=== PATIENT | female | born 1970 | race Two or more races ===

== ENCOUNTER 2020-07-05 14:00 | Inpatient (IN) | payer OTHER ==
[~2020-07-05] VITALS: Ht 160 cm; Wt 79.4 kg
[2020-07-05] MEDS ORDERED: AZITHROMYCIN 500MG/ 250ML 250 ML IV ONE (14:15)
[2020-07-05] MEDS ORDERED: methylPREDNISolone SOD SUCC 125 MG/2 ML VL IV ONE (14:15)
[2020-07-05] MEDS ORDERED: ASCORBIC ACID 500 MG TAB PO ONE (14:15)
[2020-07-05] MEDS ORDERED: ZINC SULFATE 220mg CAP or TAB PO ONE (14:15)
[2020-07-05 14:51] LABS: Basophils # (auto) 0 10 ^3/uL (0-0.2); Basophils % (auto) 0.4 % (0.0-2.0); Eosinophils # (auto) 0 10 ^3/uL (0-0.8); Eosinophils % (auto) 0.4 % (0.0-7.0); Hematocrit 42.8 % (36.0-46.0); Hemoglobin 14.7 g/dL (12.2-16.2); Lymphocytes # (auto) 1.3 10 ^3/uL (0.4-5.4); Lymphocytes % (auto) 18.7 % (10.0-50.0); Mean Corpuscular Hemoglobin 32.3 pg (28.0-32.0); Mean Corpuscular Hgb Conc. 34.4 g/dL (32.0-36.0); Mean Corpuscular Volume 93.9 fL (80.0-100.0); Monocytes # (auto) 0.5 10 ^3/uL (0-1.3); Monocytes % (auto) 7.7 % (0.0-12.0); Neutrophils # (auto) 5.2 10 ^3/uL (1.6-8.6); Neutrophils % (auto) 72.8 % (37.0-80.0); Nucleated Red Blood Cells % 0.1 %; Platelet Count (auto) 462 10^3/uL (140-450); Red Blood Cells 4.56 10^6/uL (4.0-5.20); Red Cell Distribution Width 12.7 % (11.8-14.3); White Blood Cell 7.1 10^3/uL (4.4-10.8)
[2020-07-05 15:01] LABS: Albumin 3.2 g/dL (3.4-5.0); Calcium 8.9 mg/dL (8.5-10.1); Potassium 3.2 mmol/L (3.5-5.1)
[2020-07-05 15:04] LABS: Lactic Acid w/Reflex 2.2 mmol/L (0.4-2.0)
[2020-07-05 15:09] LABS: BUN/Creatinine Ratio 16.9; Bilirubin, Total 0.4 mg/dL (0.2-1.0); CRP High Sensitivity 0.95 mg/dL (< 0.3); Total Protein 7.1 g/dL (6.4-8.2)
[2020-07-05] MEDS ORDERED: NITROGLYCERIN 0.4 MG SL TAB SL PRN (15:15)
[2020-07-05] MEDS ORDERED: MORPHINE SULF INJ 2 MG/ML SYRINGE 1ML IV PRN (15:15)
[2020-07-05] MEDS ORDERED: SODIUM CHLORIDE 0.9% 1,000 ML IV SCH (15:30)
[2020-07-05] MEDS ORDERED: ACETAMINOPHEN 500 MG TAB PO PRN (15:30)
[2020-07-05] MEDS ORDERED: LACTULOSE 20Gm/30ML SOLN PO PRN (15:30)
[2020-07-05] MEDS ORDERED: POTASSIUM EFFERVESENT TAB 25 MEQ PO ONE (15:30)
[2020-07-05 16:23] LABS: Urine WBC None Seen /hpf (0 - 5)
[2020-07-05 16:40] LABS: Urine Bacteria FEW /hpf (None Seen); Urine Blood 3+ /uL (Negative); Urine Specific Gravity 1.008 (1.001-1.035)
[2020-07-05] MEDS: MORPHINE SULF INJ 2 MG/ML SYRINGE 1ML IV PRN ×2 (16:44→22:11)
[2020-07-05] MEDS: PROMETHAZINE HCL 25 MG/ML 1ML IV PRN (16:45)
[2020-07-05 17:45] VITALS: BP 142/102
--- NOTE | 2020-07-05 17:45 | NUR ---
Telemetry admit from ER LYNNE HAWKINS admitted to Telemetry unit after SBAR received. Patient oriented to Rosa Rodriguez, primary RN, unit, room, bed, and unit policies regarding patient care and visiting hours. Patient now on continuous telemetry monitoring, tele box # 4 and telemetry reading on arrival to unit is . Patient placed on bedside oxygen, weighed by bedscale and encouraged to call if they need something. All questions and concerns addressed, patient verbalized understanding. Note:
--- NOTE | 2020-07-05 18:00 | NUR ---
PT IS ALERT ORIENTED X4, ARRIVED VIA WHEELCHAIR, IN ROOM AIR, NO DISTRESS NOTED, ABLE TO AMBULATE AND VERBALIS HER NEEDS, OCCASIONAL DRY COUGH NOTED, BACK PAIN /, ROOM ORIENTAION GIVEN TO PT, CALL LIGHT WITHIN REACH
[2020-07-05 18:04] VITALS: BP 142/102
--- NOTE | 2020-07-05 18:29 | NUR ---
PT VAPE, DOES NOT SMOKE Addendum: 07/05/20 at 1830 by Rosa Rodriguez RN Amended: Links added.
--- NOTE | 2020-07-05 19:20 | NUR ---
OPENING SHIFT NOTE: Assumed care of patient. Patient A&O x 4, no s/s of SOB or distress, patient states she has chronic back pain 06/07 and requests pain medication, will medicate for pain PRN. Bed in lowest locked position with two side rails raised and call velazquez within reach. Instructed on POC and encouraged to call for assistance, all questions and concerns addressed, patient verbalizes understanding. Will continue to monitor Q1 hr and PRN.
[2020-07-05 20:00] VITALS: BP 155/97
--- NOTE | 2020-07-05 21:57 | NUR ---
Respiratory note: MDI NOT ADMINISTERED AT THIS TIME, PENDING COVID RESULTS. PT IN NO RESPIRATORY DISTRESS
[2020-07-05 22:00] VITALS: BP 155/79
[2020-07-05] MEDS ORDERED: BUDESONIDE (INHALATION) 180 MCG IH IN SCH (22:00)
[2020-07-05] MEDS ORDERED: ALBUTEROL SULF HFA 90MCG INH 200DOSE IN SCH (22:00)
[2020-07-05] MEDS: FAMOTIDINE 20 MG TAB PO SCH (22:10)
[2020-07-05] MEDS: ENOXAPARIN SOD 80 MG/0.8ML SYRINGE SC SCH (22:10)
[2020-07-05] MEDS: CLINDAMYCIN 600MG IV 50 ML IV SCH (22:10)
[2020-07-06] MEDS ORDERED: ALBUTEROL SULF 2.5 MG/0.5ML(0.5%) NEB SOLN NEB PRN (03:30)
[2020-07-06 04:05] VITALS: BP 158/98
[2020-07-06] MEDS: CLINDAMYCIN 600MG IV 50 ML IV SCH (06:01)
[2020-07-06] MEDS: MORPHINE SULF INJ 2 MG/ML SYRINGE 1ML IV PRN ×3 (06:02→20:29)
[2020-07-06 06:28] LABS: Basophils # (auto) 0 10 ^3/uL (0-0.2); Eosinophils # (auto) 0 10 ^3/uL (0-0.8); Hematocrit 41.8 % (36.0-46.0); Lymphocytes # (auto) 0.8 10 ^3/uL (0.4-5.4); Lymphocytes % (auto) 16.3 % (10.0-50.0); Mean Corpuscular Hemoglobin 31.7 pg (28.0-32.0); Mean Corpuscular Hgb Conc. 33.4 g/dL (32.0-36.0); Mean Corpuscular Volume 94.8 fL (80.0-100.0); Monocytes # (auto) 0.1 10 ^3/uL (0-1.3); Monocytes % (auto) 1.3 % (0.0-12.0); Neutrophils # (auto) 4.2 10 ^3/uL (1.6-8.6); Neutrophils % (auto) 82.4 % (37.0-80.0); Platelet Count (auto) 367 10^3/uL (140-450); Red Blood Cells 4.41 10^6/uL (4.0-5.20); Red Cell Distribution Width 12.6 % (11.8-14.3); White Blood Cell 5.1 10^3/uL (4.4-10.8)
[2020-07-06 06:41] LABS: Potassium 4.2 mmol/L (3.5-5.1)
--- NOTE | 2020-07-06 06:46 | NUR ---
Patient requesting Pen Ruler Operator consult stating that she has no home and is currently living out of her vehicle and would like to speak to someone for assistance.
[2020-07-06 06:50] LABS: Albumin 2.9 g/dL (3.4-5.0); BUN/Creatinine Ratio 25.9; Bilirubin, Total 0.4 mg/dL (0.2-1.0); Calcium 9.1 mg/dL (8.5-10.1); Total Protein 6.7 g/dL (6.4-8.2)
--- NOTE | 2020-07-06 08:00 | NUR ---
ASSESSMENT NOTE PT IS ALERT ORIENTED X4. RESTING IN BED COMFORTABLY, IN ROOM AIR, NO DISRESS NOTED, ABLE TO SELF REPOSITION AND VERBALIS HER DEMANDS, CONTINUE ON PAIN MANAGEMENT FOR BACK PAIN NEEDED, CALL LIGHT WITHIN REACH
[2020-07-06 09:00] VITALS: BP 157/99
--- NOTE | 2020-07-06 09:15 | NUR ---
CHARGE NURSE CAILIN CALLED, PT IS GOING TO ROOM 290 A WITH JESUS LEGER PT MADE AWARE IV ANTIBIOTICS CONTINUE INFUSING, HIGH BLOOD PRESSURE, [facility] L[facility]
[2020-07-06] MEDS: ZINC SULFATE 220mg CAP or TAB PO SCH (09:28)
[2020-07-06] MEDS: DexAMETHasone SOD PHOS 10MG/1ML VIAL INJ IV SCH (09:28)
[2020-07-06] MEDS: FAMOTIDINE 20 MG TAB PO SCH ×2 (09:28→22:07)
[2020-07-06] MEDS: ENOXAPARIN SOD 80 MG/0.8ML SYRINGE SC SCH ×2 (09:29→22:07)
[2020-07-06] MEDS ORDERED: ASCORBIC ACID 1,000 MG TAB PO SCH (10:00)
[2020-07-06] MEDS ORDERED: levoFLOXacin 500MG 100 ML IV SCH (10:00)
[2020-07-06] MEDS ORDERED: CHOLECALCIFEROL (VITD3) 2,000 UNIT CAP PO SCH (10:00)
--- NOTE | 2020-07-06 10:30 | NUR ---
REPORT GIVEN TO JESUS LEGER, PT IS GOING TO ROOM 290 A
--- NOTE | 2020-07-06 10:39 | NUR ---
TRANSFER PT TO ROOM 290 A, NO DISTRESS NOTED
--- NOTE | 2020-07-06 10:40 | NUR ---
Patient on Unit Patient on unit at this time. Report received from ARSEN Lee.
[2020-07-06] MEDS ORDERED: FUROSEMIDE 40 MG/4 ML VIAL IV ONE ×2 (11:30→18:00)
--- NOTE | 2020-07-06 11:40 | NUR ---
Covid Test Covid test done at this time. marleny Vazquez, to deliver swab to lab. Awaiting test results.
--- NOTE | 2020-07-06 11:55 | NUR ---
Call to East Call to East at this time. ARSEN Lee, aware that patient will be returning to unit.
--- NOTE | 2020-07-06 12:02 | NUR ---
CT Chest Patient getting CT of chest. After CT, patient is to return to room 235.
--- NOTE | 2020-07-06 12:10 | NUR ---
PT IS BACK TO COVID WING, NO DISTRESS NOTED, TO ROOM 235
[2020-07-06] MEDS ORDERED: cloNIDine HCL 0.1 MG TAB PO PRN (12:45)
[2020-07-06 13:00] VITALS: BP 128/66
--- NOTE | 2020-07-06 14:00 | NUR ---
PT CONTINUE STABLE, CONTINUE MONITORING
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
[2020-07-06 17:00] VITALS: BP 116/69
--- NOTE | 2020-07-06 18:27 | NUR ---
PT CONTINUE STABLE, CONTINUE MONITORING
--- NOTE | 2020-07-06 19:40 | NUR ---
OPENING SHIFT NOTE: Assumed care of patient. Patient AWAKE, ALERT, AND ORIENTED x 4, no s/s of respiratory distress. patient states back pain 9/10 and requests pain medication; will be medicated per Dr's order. Bed in lowest locked position, two side rails raised, and call velazquez within reach. Instructed on POC and encouraged to call for assistance as needed. All questions and concerns addressed. Patient verbalized understanding. Will continue to monitor Q1H/ PRN.
[2020-07-06 20:00] VITALS: BP 130/100
[2020-07-06 22:00] VITALS: BP 130/100
[2020-07-06] MEDS: TEMAZEPAM 15 MG CAP PO PRN (22:07)
--- NOTE | 2020-07-07 04:41 | NUR ---
transfer Pt is going to be transferred to room 206. Report given to ARSEN Zimmer.
--- NOTE | 2020-07-07 04:55 | NUR ---
transferred Pt transferred to r.206. Patient is stable. No s/s of respiratory distress. Vitals T 98.1 F, HR 79 bpm, RR 18 bpm, BP 142/92 mmHg, SpO2 94% on RA. All belongings transferred with the pt.
--- NOTE | 2020-07-07 04:55 | NUR ---
Transfer from [facility] Assumed care of patient that was transferred from [facility] to room 206 pt placed on telemetry 26 heart rate is SR in 60s. Pt awake and alert A/O x 4. No S/S of distress/SOB did complain of pain when coughing. Bed lowered and locked call light and beside table is within reach. Instructed on POC and to call for assist PRN, will continue to monitor for changes Q1hr and PRN.
[2020-07-07 05:00] VITALS: BP 152/98
[2020-07-07] MEDS: MORPHINE SULF INJ 2 MG/ML SYRINGE 1ML IV PRN ×4 (05:23→23:05)
[2020-07-07] MEDS: PROMETHAZINE HCL 25 MG/ML 1ML IV PRN (05:23)
[2020-07-07] MEDS: guaiFENesin-DM 100/10mg/5ml SYR PO PRN ×2 (05:24→19:45)
--- NOTE | 2020-07-07 07:50 | NUR ---
OPENING SHIFT NOTE: PATIENT RESTING IN BED, ASLEEP, EASILY AWOKEN. UPDATED CARE BOARD ON PLAN OF CARE. RESPIRATIONS EVEN AND UNLABORED, CALL LIGHT WITHIN REACH. WILL CONTINUE TO MONITOR.
[2020-07-07 08:00] VITALS: BP 110/60
--- NOTE | 2020-07-07 09:40 | NUR ---
MD ALBERT ROUNDING.
[2020-07-07] MEDS ORDERED: LIDOCAINE VISCOUS 2% 15ML UD MT PRN ×3 (09:45→11:00)
[2020-07-07] MEDS: DexAMETHasone SOD PHOS 10MG/1ML VIAL INJ IV SCH (09:49)
[2020-07-07 09:50] VITALS: BP 110/60
[2020-07-07] MEDS: ZINC SULFATE 220mg CAP or TAB PO SCH (09:50)
[2020-07-07] MEDS: FAMOTIDINE 20 MG TAB PO SCH ×2 (09:50→21:23)
[2020-07-07] MEDS: CHOLECALCIFEROL (VITD3) 1,000UNIT=25mCg TAB PO SCH (09:50)
[2020-07-07] MEDS: ASCORBIC ACID 500 MG TAB PO SCH (09:50)
[2020-07-07] MEDS: levoFLOXacin 750MG 150 ML IV SCH (09:52)
[2020-07-07] MEDS: FUROSEMIDE 40 MG/4 ML VIAL IV SCH (09:53)
--- NOTE | 2020-07-07 10:04 | NUR ---
COVID MEDS GIVEN: PER PROTOCOL DC COVID MEDS IF NEGATIVE, PATIENT NEGATIVE, MD ALBERT REQUEST TO CONTINUE AND NOT DC.
--- NOTE | 2020-07-07 10:04 | NUR ---
MD AVEL MOJICA.
--- NOTE | 2020-07-07 10:18 | NUR ---
RAPID STREP SENT TO LAB.
--- NOTE | 2020-07-07 10:31 | NUR ---
URINE SENT TO LAB.
[2020-07-07 11:25] LABS: Amphetamine Screen, Urine NEGATIVE (NEGATIVE); Barbiturate Scree,Urine NEGATIVE (NEGATIVE); Benzodiazephine Screen, Urine NEGATIVE (NEGATIVE); Cannabinoid Screen, Urine NEGATIVE (NEGATIVE); Cocaine Screen, Urine NEGATIVE (NEGATIVE); Phencyclidine Screen, Urine NEGATIVE (NEGATIVE)
[2020-07-07 11:34] LABS: Opiate Scree,Urine POSITIVE (NEGATIVE)
[2020-07-07 12:00] VITALS: BP 113/87
[2020-07-07] MEDS: ENOXAPARIN SOD 40 MG/0.4 ML SYRINGE SC SCH (12:21)
[2020-07-07] MEDS: IPRATROPIUM BROM 0.5 MG/2.5ML INH SOL NEB SCH ×2 (12:33→18:06)
[2020-07-07] MEDS: ALBUTEROL SULF 2.5 MG/0.5ML(0.5%) NEB SOLN NEB SCH ×2 (12:33→18:06)
[2020-07-07] MEDS: ACETYLCYSTEINE 10 %(100MG/ML) SOL 4ML NEB SCH ×2 (12:33→18:07)
[2020-07-07 17:00] VITALS: BP 118/83
[2020-07-07] MEDS: BUDESONIDE (INHALATION) 0.5 MG/2 ML NEB NEB SCH (18:06)
--- NOTE | 2020-07-07 18:45 | NUR ---
CARE ENDORSED TO NOC RN.
--- NOTE | 2020-07-07 19:30 | NUR ---
Opening Shift Note Assumed care of patient, awake and alert A/O x 4. Tele monitor matches Pt and leads are in position. No S/S of distress/SOB or pain. Bed locked and lowered call light and bedside table at bedside and within reach. Instructed on POC and to call for assist PRN, will continue to monitor for changes Q1hr and PRN.
[2020-07-07] MEDS: TEMAZEPAM 15 MG CAP PO PRN (21:29)
[2020-07-07] MEDS: traMADol HCL 50 MG TAB PO PRN (21:30)
[2020-07-07 21:53] VITALS: BP 110/79
[2020-07-08] MEDS: IPRATROPIUM BROM 0.5 MG/2.5ML INH SOL NEB SCH ×5 (00:09→23:48)
[2020-07-08] MEDS: ALBUTEROL SULF 2.5 MG/0.5ML(0.5%) NEB SOLN NEB SCH ×5 (00:09→23:48)
[2020-07-08 05:00] VITALS: BP 123/78
[2020-07-08] MEDS: MORPHINE SULF INJ 2 MG/ML SYRINGE 1ML IV PRN (06:21)
[2020-07-08] MEDS: ACETYLCYSTEINE 10 %(100MG/ML) SOL 4ML NEB SCH ×5 (06:55→23:48)
[2020-07-08] MEDS: BUDESONIDE (INHALATION) 0.5 MG/2 ML NEB NEB SCH ×2 (06:55→18:55)
--- NOTE | 2020-07-08 06:55 | NUR ---
Respiratory note: MUCOMYST HELD AT THIS TIME. PT DID NOT WANT IT BECAUSE SHE STATED THAT IT MAKES HER LUNGS HURT.
--- NOTE | 2020-07-08 07:00 | NUR ---
OPENING SHIFT NOTE RECEIVED REPORT ON THE PATIENT. SLEEPING IN BED. PATIENT DOES NOT SHOW ANY SIGNS OF DISTRESS AT THIS TIME. DISCUSSED THE PLAN OF CARE WITH THE PATIENT. BED IN LOWEST POSITION, SIDE RAILS UP X2, AND THE CALL LIGHT IS WITHIN REACH.
[2020-07-08 08:00] VITALS: BP 110/74
[2020-07-08] MEDS: FUROSEMIDE 40 MG/4 ML VIAL IV SCH (10:00)
[2020-07-08] MEDS: ZINC SULFATE 220mg CAP or TAB PO SCH (10:20)
[2020-07-08] MEDS: FAMOTIDINE 20 MG TAB PO SCH ×2 (10:21→20:08)
[2020-07-08] MEDS: ASCORBIC ACID 500 MG TAB PO SCH (10:21)
[2020-07-08] MEDS: CHOLECALCIFEROL (VITD3) 1,000UNIT=25mCg TAB PO SCH (10:21)
[2020-07-08] MEDS: levoFLOXacin 750MG 150 ML IV SCH (10:21)
[2020-07-08] MEDS: DexAMETHasone SOD PHOS 10MG/1ML VIAL INJ IV SCH (10:21)
[2020-07-08] MEDS: THIAMINE HCL 100 MG TAB PO SCH (10:21)
[2020-07-08] MEDS: ENOXAPARIN SOD 40 MG/0.4 ML SYRINGE SC SCH (10:22)
[2020-07-08 12:00] VITALS: BP 123/86
[2020-07-08] MEDS ORDERED: LORazepam 2MG/ML-1ML VIAL IV ONE (12:00)
--- NOTE | 2020-07-08 14:07 | NUR ---
IV insertion IV access obtained, via clean sterile technique by inserting 22 gauge catheter at the right wrist after 1 attempt(s). IV secured properly. No trauma to site. Patient tolerated well. NOTE: []
[2020-07-08] MEDS: guaiFENesin-DM 100/10mg/5ml SYR PO PRN (15:39)
--- NOTE | 2020-07-08 16:01 | NUR ---
PATIENT WANTED THE IV REMOVED BECAUSE IT WAS PAINFUL. IV TAKEN OUT AND PATIENT SHOWS NO SIGNS OF DISTRESS.
[2020-07-08] MEDS: traMADol HCL 50 MG TAB PO PRN (16:16)
[2020-07-08 16:47] VITALS: BP 110/84
--- NOTE | 2020-07-08 17:58 | NUR ---
IV insertion IV access obtained, via clean sterile technique by inserting 22 gauge catheter at the left wrist after 1 attempt(s). IV secured properly. No trauma to site. Patient tolerated well. NOTE: []
--- NOTE | 2020-07-08 17:58 | NUR ---
IV removal IV DC'd with clean sterile technique, catheter fully intact. Pressure dressing applied to site. Patient tolerated well.
[2020-07-08] MEDS: TEMAZEPAM 15 MG CAP PO PRN (20:08)
--- NOTE | 2020-07-08 20:08 | NUR ---
open note assumed care of pt, upon entering room pt awake and alert. pt on room air and denies any respiratory distress. pt oriented to this nurse and updated on plan of care. pt bed locked, low and 2x rails up. call light in reach, this nurse to round q1hr and prn. pt encouraged to call as needed.
[2020-07-08 22:00] VITALS: BP 122/81
[2020-07-09 05:00] VITALS: BP 132/67
[2020-07-09] MEDS: BUDESONIDE (INHALATION) 0.5 MG/2 ML NEB NEB SCH ×2 (06:13→19:10)
[2020-07-09] MEDS: ACETYLCYSTEINE 10 %(100MG/ML) SOL 4ML NEB SCH ×3 (06:13→19:10)
[2020-07-09] MEDS: IPRATROPIUM BROM 0.5 MG/2.5ML INH SOL NEB SCH ×3 (06:13→19:10)
[2020-07-09] MEDS: ALBUTEROL SULF 2.5 MG/0.5ML(0.5%) NEB SOLN NEB SCH ×3 (06:13→19:10)
[2020-07-09 08:00] VITALS: BP 125/85
[2020-07-09] MEDS: FAMOTIDINE 20 MG TAB PO SCH ×2 (09:06→21:24)
[2020-07-09] MEDS: CHOLECALCIFEROL (VITD3) 1,000UNIT=25mCg TAB PO SCH (09:06)
[2020-07-09] MEDS: traMADol HCL 50 MG TAB PO PRN (09:06)
[2020-07-09] MEDS: ASCORBIC ACID 500 MG TAB PO SCH (09:07)
[2020-07-09] MEDS: THIAMINE HCL 100 MG TAB PO SCH (09:07)
[2020-07-09] MEDS: ZINC SULFATE 220mg CAP or TAB PO SCH (09:07)
[2020-07-09] MEDS: ENOXAPARIN SOD 40 MG/0.4 ML SYRINGE SC SCH (09:08)
[2020-07-09] MEDS: DexAMETHasone SOD PHOS 10MG/1ML VIAL INJ IV SCH (09:08)
[2020-07-09] MEDS: levoFLOXacin 750MG 150 ML IV SCH (09:08)
[2020-07-09] MEDS: FUROSEMIDE 40 MG/4 ML VIAL IV SCH (09:08)
[2020-07-09] MEDS ORDERED: ONDANSETRON HCL 4 MG/2 ML VIAL IV PRN (10:30)
[2020-07-09] MEDS ORDERED: ONDANSETRON HCL 4 MG/2 ML VIAL IV ONE (10:30)
[2020-07-09] MEDS ORDERED: PANTOPRAZOLE 40 MG/10 ML VIAL INJ IV ONE (10:30)
[2020-07-09] MEDS: PROMETHAZINE HCL 25 MG/ML 1ML IV PRN (10:36)
--- NOTE | 2020-07-09 10:38 | NUR ---
Nutrition Assessment Notes Please refer to link for full assessment notes. Est Energy needs: 1364-6344 kcals (20-23 kcal/kgBW) Est Protein needs: 61-77 gms/day (0.8-1.0 gm/kgBW) Will continue to monitor and reassess prn. Addendum: 07/09/20 at [address] Amended: Links added.
[2020-07-09] MEDS: LORazepam 0.5 MG TAB PO PRN (10:42)
[2020-07-09 11:04] LABS: Basophils # (auto) 0 10 ^3/uL (0-0.2); Basophils % (auto) 0.2 % (0.0-2.0); Eosinophils # (auto) 0 10 ^3/uL (0-0.8); Eosinophils % (auto) 0.1 % (0.0-7.0); Hematocrit 47.1 % (36.0-46.0); Lymphocytes % (auto) 10.1 % (10.0-50.0); Mean Corpuscular Hemoglobin 32.1 pg (28.0-32.0); Mean Corpuscular Hgb Conc. 33.9 g/dL (32.0-36.0); Mean Corpuscular Volume 94.7 fL (80.0-100.0); Monocytes # (auto) 0.5 10 ^3/uL (0-1.3); Neutrophils # (auto) 8.7 10 ^3/uL (1.6-8.6); Neutrophils % (auto) 84.6 % (37.0-80.0); Platelet Count (auto) 361 10^3/uL (140-450); Red Blood Cells 4.97 10^6/uL (4.0-5.20); Red Cell Distribution Width 12.8 % (11.8-14.3); White Blood Cell 10.3 10^3/uL (4.4-10.8)
[2020-07-09 11:20] LABS: Albumin 3.5 g/dL (3.4-5.0); Amylase 116 U/L (25-115); Anion Gap 8 (5-15); Blood Urea Nitrogen 15 mg/dL (7-18); Calcium 9.7 mg/dL (8.5-10.1); Carbon Dioxide 28 mmol/L (21-32); Chloride 98 mmol/L (98-107); Glucose 93 mg/dL (74-106); Lipase 382 U/L (73-393); Sodium 134 mmol/L (136-145)
[2020-07-09 11:27] LABS: Alanine Aminotransferase 62 U/L (13-56); Alkaline Phosphatase 106 U/L (45-117); Aspartate Aminotransferase 74 U/L (15-37); Bilirubin, Total 0.4 mg/dL (0.2-1.0); GFR African American 87 mL/min; GFR Non-African American 72 mL/min; Lactate Dehydrogenase 299 U/L (84-246); Total Protein 7.7 g/dL (6.4-8.2)
[2020-07-09 12:00] VITALS: BP 118/82
[2020-07-09] MEDS: guaiFENesin-DM 100/10mg/5ml SYR PO PRN (12:51)
[2020-07-09] MEDS: SUCRALFATE 1 GM/10 ML ORAL SUSP PO SCH ×3 (12:55→21:24)
[2020-07-09 16:48] VITALS: BP 114/74
--- NOTE | 2020-07-09 19:30 | NUR ---
Opening Shift Note Assumed care of patient, awake and alert. No S/S of distress/SOB. Pain 8/10 to lower back.will medicate for pain. Instructed on POC and to call for assist PRN, will continue to monitor for changes Q1hr and PRN. bed in low position and call light within reach.
[2020-07-09] MEDS: MORPHINE SULF INJ 2 MG/ML SYRINGE 1ML IV PRN (19:35)
--- NOTE | 2020-07-09 19:35 | NUR ---
pain pain 8/10 to lower back aching.patient medicated for pain. skin color is pink. no redness or inflammation noted. patient requested morphine and denies allergic reaction to morphine.
[2020-07-09 20:00] VITALS: BP 131/78
--- NOTE | 2020-07-09 20:05 | NUR ---
pain pain4/10 tolerable level
[2020-07-09] MEDS: PANTOPRAZOLE 40 MG/10 ML VIAL INJ IV SCH (21:25)
[2020-07-09] MEDS: TEMAZEPAM 15 MG CAP PO PRN (21:26)
[2020-07-09 21:54] VITALS: BP 117/81
[2020-07-10] MEDS: IPRATROPIUM BROM 0.5 MG/2.5ML INH SOL NEB SCH ×4 (00:52→18:59)
[2020-07-10] MEDS: ALBUTEROL SULF 2.5 MG/0.5ML(0.5%) NEB SOLN NEB SCH ×4 (00:52→18:59)
[2020-07-10] MEDS: ACETYLCYSTEINE 10 %(100MG/ML) SOL 4ML NEB SCH ×4 (00:53→18:59)
[2020-07-10 05:00] VITALS: BP 126/76
[2020-07-10] MEDS: BUDESONIDE (INHALATION) 0.5 MG/2 ML NEB NEB SCH ×2 (05:53→18:59)
[2020-07-10] MEDS: SUCRALFATE 1 GM/10 ML ORAL SUSP PO SCH ×4 (06:28→21:28)
--- NOTE | 2020-07-10 07:05 | NUR ---
REPORT GIVEN TO DAYSHIFT RN PATIENT DENIES SOB DISTRESS OR PAIN.
--- NOTE | 2020-07-10 07:15 | NUR ---
OPENING SHIFT NOTE ASSUMED CARE OF PATIENT ALERT AWAKE AND IN BED. PATIENT DOES NOT SHOW ANY SIGNS OF DISTRESS AT THIS TIME. DISCUSSED THE PLAN OF CARE WITH THE PATIENT. BED IN LOWEST POSITION, SIDE RAILS UP X2, AND THE CALL LIGHT IS WITHIN REACH. WILL CONTINUE TO MONITOR.
[2020-07-10 08:11] VITALS: BP 116/58
[2020-07-10] MEDS ORDERED: PANTOPRAZOLE 40 MG/10 ML VIAL INJ IV SCH (10:00)
[2020-07-10] MEDS: DexAMETHasone SOD PHOS 10MG/1ML VIAL INJ IV SCH (10:11)
[2020-07-10] MEDS: levoFLOXacin 750MG 150 ML IV SCH (10:12)
[2020-07-10] MEDS: FUROSEMIDE 40 MG/4 ML VIAL IV SCH (10:12)
[2020-07-10] MEDS: PANTOPRAZOLE 40 MG/10 ML VIAL INJ IV SCH ×2 (10:12→21:28)
[2020-07-10] MEDS: FAMOTIDINE 20 MG TAB PO SCH ×2 (10:13→21:28)
[2020-07-10] MEDS: ENOXAPARIN SOD 40 MG/0.4 ML SYRINGE SC SCH (10:13)
[2020-07-10] MEDS: THIAMINE HCL 100 MG TAB PO SCH (10:13)
--- NOTE | 2020-07-10 10:30 | NUR ---
MD ROUNDS DR SHORT AT BEDSIDE. NO NEW ORDERS AT THIS TIME. CONTINUE CARE.
[2020-07-10 12:45] VITALS: BP 111/80
[2020-07-10] MEDS: MORPHINE SULF INJ 2 MG/ML SYRINGE 1ML IV PRN ×2 (13:45→20:18)
[2020-07-10 14:24] VITALS: BP 111/80
[2020-07-10] MEDS: metroNIDAZOLE 500MG/100ML 100 ML IV SCH ×2 (14:48→21:29)
--- NOTE | 2020-07-10 15:00 | NUR ---
IV removal IV DC'd at left hand due to infiltration with clean sterile technique, catheter fully intact. Pressure dressing applied to site. Patient tolerated well.
[2020-07-10] MEDS: LORazepam 0.5 MG TAB PO PRN (15:59)
[2020-07-10 16:40] VITALS: BP 134/86
--- NOTE | 2020-07-10 19:14 | NUR ---
CLOSING NOTE ENDORSED CARE TO NOC SHIFT RN
--- NOTE | 2020-07-10 19:22 | NUR ---
Opening Shift Note Assumed care of patient, awake and alert. No S/S of distress/SOB or pain. Instructed on POC and to call for assist PRN, will continue to monitor for changes Q1hr and PRN. no IV present. will start a new iv
--- NOTE | 2020-07-10 19:50 | NUR ---
IV insertion IV access obtained by ARSEN varma, via clean sterile technique by inserting 22 gauge catheter at right forearm 22g after 1attempt. IV secured properly. No trauma to site. Patient tolerated well.
[2020-07-10] MEDS: TEMAZEPAM 15 MG CAP PO PRN (21:28)
[2020-07-10 22:00] VITALS: BP 130/90
--- NOTE | 2020-07-10 22:42 | NUR ---
IS at bedside patient verbalized understanding on how to perform IS.
[2020-07-11] MEDS: IPRATROPIUM BROM 0.5 MG/2.5ML INH SOL NEB SCH ×3 (00:39→12:00)
[2020-07-11] MEDS: ACETYLCYSTEINE 10 %(100MG/ML) SOL 4ML NEB SCH ×3 (00:39→12:00)
[2020-07-11] MEDS: ALBUTEROL SULF 2.5 MG/0.5ML(0.5%) NEB SOLN NEB SCH ×3 (00:39→12:00)
[2020-07-11 05:30] VITALS: BP 129/88
[2020-07-11 05:36] LABS: Basophils # (auto) 0 10 ^3/uL (0-0.2); Basophils % (auto) 0.2 % (0.0-2.0); Eosinophils # (auto) 0 10 ^3/uL (0-0.8); Eosinophils % (auto) 0.1 % (0.0-7.0); Hematocrit 44.7 % (36.0-46.0); Hemoglobin 15.5 g/dL (12.2-16.2); Lymphocytes # (auto) 1.5 10 ^3/uL (0.4-5.4); Lymphocytes % (auto) 21.4 % (10.0-50.0); Mean Corpuscular Hemoglobin 32.5 pg (28.0-32.0); Mean Corpuscular Hgb Conc. 34.6 g/dL (32.0-36.0); Mean Corpuscular Volume 93.8 fL (80.0-100.0); Monocytes # (auto) 0.4 10 ^3/uL (0-1.3); Monocytes % (auto) 5.8 % (0.0-12.0); Neutrophils # (auto) 5.2 10 ^3/uL (1.6-8.6); Neutrophils % (auto) 72.5 % (37.0-80.0); Nucleated Red Blood Cells % 0.1 %; Platelet Count (auto) 302 10^3/uL (140-450); Red Blood Cells 4.77 10^6/uL (4.0-5.20); Red Cell Distribution Width 12.6 % (11.8-14.3); White Blood Cell 7.2 10^3/uL (4.4-10.8)
[2020-07-11] MEDS: metroNIDAZOLE 500MG/100ML 100 ML IV SCH (05:42)
[2020-07-11] MEDS: MORPHINE SULF INJ 2 MG/ML SYRINGE 1ML IV PRN (05:46)
--- NOTE | 2020-07-11 05:46 | NUR ---
PAIN PAIN 8/10 TO LOWER BACK, ACHING PAIN. PATIENT HAS HISTORY OF BACK PAIN. PATIENT MEDICATED FOR PAIN.
[2020-07-11 06:01] LABS: BUN/Creatinine Ratio 18.7; Calcium 9.3 mg/dL (8.5-10.1)
--- NOTE | 2020-07-11 06:16 | NUR ---
PAIN PAIN REASSESSMENT 0/10 . PATIENT SLEEPING. NO SIGNS OF SOB DISTRESS OR PAIN NOTICED. RR 15, HEART RATE 73BPM.
[2020-07-11] MEDS: SUCRALFATE 1 GM/10 ML ORAL SUSP PO SCH (06:27)
[2020-07-11] MEDS: BUDESONIDE (INHALATION) 0.5 MG/2 ML NEB NEB SCH (06:35)
--- NOTE | 2020-07-11 06:57 | NUR ---
Report given to dayshift RN patient is awake and alert.Denies sob distress or pain.
--- NOTE | 2020-07-11 07:30 | NUR ---
Opening Shift Note Assumed care of patient, awake and alert. No S/S of distress/SOB or pain. Instructed on POC and to call for assist PRN, will continue to monitor for changes Q1hr and PRN. Bed locked in lowest position, HOB elevated at least 30 degrees, call light is within reach and side rails up x 2.
[2020-07-11] MEDS: levoFLOXacin 750MG 150 ML IV SCH (10:00)
[2020-07-11] MEDS: PANTOPRAZOLE 40 MG/10 ML VIAL INJ IV SCH (10:00)
[2020-07-11] MEDS: FUROSEMIDE 40 MG/4 ML VIAL IV SCH (10:00)
[2020-07-11] MEDS: ENOXAPARIN SOD 40 MG/0.4 ML SYRINGE SC SCH (10:00)
[2020-07-11] MEDS: THIAMINE HCL 100 MG TAB PO SCH (10:00)
[2020-07-11] MEDS: DexAMETHasone SOD PHOS 10MG/1ML VIAL INJ IV SCH (10:00)
[2020-07-11] MEDS: FAMOTIDINE 20 MG TAB PO SCH (10:00)
[2020-07-11 11:20] VITALS: BP 136/83
--- NOTE | 2020-07-11 11:48 | NUR ---
Discharge instructions given as ordered. Patient does not have a primary care provider. Patient spoke with EDGAR An about setting up a primary care provider with her insurance, [employer]. Re-educated patient on setting up a primary care provider with [employer]. Patient verbalized understanding. All questions and concerns addressed. Patient verbalized understanding. IV removed with catheter intact, pressure dressing applied Telemetry unit returned to ICU. Patient ambulated independently to vehicle with all personal belongings, accompanied by staff and family member. No distress noted at time of departure.
== END 2020-07-11 11:48 | disposition home or self-care (01) | DRG 871 ==
LOC: ER 14:00 → TELE 14:01 → TELE-EAST 17:58 → TELE-WESTW 07-06 10:41 → TELE-EAST 07-06 12:18 → TELE-CENTR 07-07 04:54
PROVIDERS: ADMIT Internal Medicine; ATTEND Internal Medicine
DX: A41.9 Sepsis, unspecified organism (principal); J96.00 Acute respiratory failure, unspecified whether with hypoxia or hypercapnia; K85.90 Acute pancreatitis without necrosis or infection, unspecified; J18.9 Pneumonia, unspecified organism; J98.11 Atelectasis; F17.210 Nicotine dependence, cigarettes, uncomplicated; M48.00 Spinal stenosis, site unspecified; G89.29 Other chronic pain; J45.909 Unspecified asthma, uncomplicated; I10 Essential (primary) hypertension; F41.9 Anxiety disorder, unspecified; Z20.828 Contact with and (suspected) exposure to other viral communicable diseases; E87.6 Hypokalemia; E66.9 Obesity, unspecified; Z88.6 Allergy status to analgesic agent; Z90.49 Acquired absence of other specified parts of digestive tract; Z98.51 Tubal ligation status; Z80.9 Family history of malignant neoplasm, unspecified; Z83.3 Family history of diabetes mellitus; Z88.5 Allergy status to narcotic agent; Z59.0 Homelessness; Z91.410 Personal history of adult physical and sexual abuse; Z68.30 Body mass index [BMI] 30.0-30.9, adult; Z79.899 Other long term (current) drug therapy; Z71.6 Tobacco abuse counseling
CPT/HCPCS: 36415; 71045; 71250; 74176; 80048; 80053; 80307; 81001; 82150; 82728; 83605; 83615; 83690; 83880; 84484; 85025; 85379; 86141; 87040; 87070; 87081; 87426; 87880; 93005; 93970; 94640; 96361; 96365; 96375; C9113; G0378; J1100; J1956; J2405; J3490